=== PATIENT | male | born 1975 | race American Indian/Alaskan Native ===

== ENCOUNTER 2018-10-21 00:23 | Emergency (ER) | payer SELFPAY ==
[2018-10-21 01:05] VITALS: TEMP 98.6
--- NOTE | 2018-10-21 01:50 | ED PDOC ---
HPI: Hypertension/Hypotension Time Seen by Provider: 10/21/18 00:32 Chief Complaint (Nursing): High Blood Pressure Chief Complaint (Provider): High Blood Pressure History Per: Patient History/Exam Limitations: no limitations Onset/Duration Of Symptoms: Days (a couple weeks) Current Symptoms Are (Timing): Still Present Additional Complaint(s): 43 year old male with pmxh htn, hyperlipidemia, and hypercholesteremia presents to the ED for evaluation of high blood pressure. Patient notes that he typically takes Amlodipine 5mg daily but ran out of meds a couple weeks ago and due to insurance issues, cannot visit his doctor for a prescription renewal. Currently, patient states he feels ok, however is aware of his high blood pressure and feels as if he should be evaluated. Otherwise, denies chest pain, shortness of breath, headache, nausea, and vomiting. 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) Drugs: Denies - Home Medications Home Medications: Ambulatory Orders Medication Instructions Recorded amLODIPine [Norvasc] 5 mg PO QAM #14 tab 10/21/18 - Allergies Allergies/Adverse Reactions: Allergies Allergy/AdvReac Type Severity Reaction Status Date / Time No Known Allergies Allergy Verified 10/21/18 00:58 Review of Systems ROS Statement: Except As Marked, All Systems Reviewed And Found Negative Cardiovascular: Negative for: Chest Pain Respiratory: Negative for: Shortness of Breath Gastrointestinal: Negative for: Nausea, Vomiting Neurological: Negative for: Headache Physical Exam - Reviewed Nursing Documentation Reviewed: Yes Vital Signs Reviewed: Yes - Physical Exam Appears: Positive for: No Acute Distress Head Exam: Positive for: ATRAUMATIC, NORMOCEPHALIC Skin: Positive for: Normal Color, Warm Eye Exam: Positive for: Normal appearance, EOMI, PERRL ENT: Positive for: Normal ENT Inspection Neck: Positive for: Normal, Painless ROM, Supple Cardiovascular/Chest: Positive for: Tachycardia Respiratory: Positive for: Normal Breath Sounds. Negative for: Respiratory Distress Gastrointestinal/Abdominal: Positive for: Normal Exam, Soft. Negative for: Tenderness Back: Positive for: Normal Inspection Extremity: Positive for: Normal ROM (all extremities) Neurological/Psych: Positive for: Awake, Alert, Oriented (x3) - ECG O2 Sat by Pulse Oximetry: 96 (RA) Pulse Ox Interpretation: Normal Medical Decision Making Medical Decision Making: Time: 104 Initial Impression: 43 year old male with history of htn seeking prescription refill Initial Plan: --EKG --Norvasc 10mg PO --Reevaluation 209 Patient refusing EKG citing concern over cost. 314 On reevaluation, patient with improved BP and stable for discharge with diagnosis of htn. Patient given a two weeks supply Norvasc and instructed to follow up at the clinic. Return parameters given and all questions answered. Scribe Attestation: Documented by Sumi Chen, acting as a scribe for Francisco Javier Osullivan MD. Provider Scribe Attestation: All medical record entries made by the Scribe were at my direction and personally dictated by me. I have reviewed the chart and agree that the record accurately reflects my personal performance of the history, physical exam, medical decision making, and the department course for this patient. I have also personally directed, reviewed, and agree with the discharge instructions and disposition. Disposition - Clinical Impression Clinical Impression: Hypertension - Disposition Referrals: [facility] [Outside] Disposition Time: 03:17 Condition: STABLE Prescriptions: amLODIPine [Norvasc] 5 mg PO QAM #14 tab Instructions: High Blood Pressure in Adults Forms: [employer] (Lithuanian)
[2018-10-21 08:27] VITALS: BP 146/72; PULSE 96; RESP 18; O2SAT 99
== END 2018-10-21 03:20 | disposition home or self-care (01) ==
LOC: H.ER 00:23
DX: I10 Essential (primary) hypertension (principal)